=== PATIENT | male | born 1960 | race Caucasian/White ===

== ENCOUNTER 2023-05-24 17:39 | Inpatient (IN) ==
[2023-05-24] MEDS ORDERED: SODIUM CHLORIDE 0.9% 1000ML 1,000 ML IV ONE (17:53)
[2023-05-24] MEDS ORDERED: MoRPHine SULFATE 10 MG/ML CARP/VIAL IV STA (17:53)
--- NOTE | 2023-05-24 17:57 | Emergency Department Note ---
Impression & Plan Pancreatitis, Transaminitis, Alcohol abuse ED Provider Note NAME: ALLYSSA DONATO AGE: 63 SEX: M : 1960 ARRIVES VIA: Ambulance INFORMANT: Patient ED PROVIDER(S): Js Vasquez DO CHIEF COMPLAINT: abdominal pain HPI: Patient is a 63-year-old male who presents the ER for abdominal pain which started earlier today. He had this once about a month ago and it resolved shortly after. He denies any previous abdominal pains. It is associated with nausea and vomiting. Denies any headache or change in vision. It is an 8-9 out of 10. He notes his abdomen is distended and rigid. He did have a small bowel movement earlier today but nothing since. No dysuria, urgency or frequency. No other exacerbating or remitting factors. He does admit to drinking alcohol da corby between 6-8 beers. PAST MEDICAL HISTORY:See Below PAST SURGICAL HISTORY:See Below FAMILY HISTORY:See Below SOCIAL HISTORY:See Below HOME MEDICATIONS:See Below ALLERGIES:See Below VITALS:See Below PHYSICAL EXAMINATION: GENERAL: Sitting up in bed, alert, moderate distress holding his abdomen EYE EXAM: normal conjunctiva. OROPHARYNX: mucous membranes are moist LUNGS: Clear to auscultation. Normal chest wall mechanics HEART: no murmurs, S1 normal and S2 normal ABDOMEN: abdomen soft, diffusely tender to palpation, normo-active bowel sounds, no masses, no rebound or guarding. UPPER EXTREMITIES: upper extremities are grossly normal. LOWER EXTREMITIES: No pitting edema. NEURO EXAM: Normal sensorium, cranial nerves II-XII grossly intact, normal speech, no gross weakness of arms, no gross weakness of legs. MEDICAL DECISION MAKING: Patient is a 63-year-old male who presents ER for above-stated complaint. IV was established blood work was obtained. External records reviewed. Labs show no significant leukocytosis or anemia. BMP with mild hyponatremia 131. LFTs was remarkable for transaminitis in the low 100s. T. bili slightly up at 1.4. Mag low at 1.3. Lipase was elevated significantly at 3000. UA was clean. CT abdomen pelvis confirms pancreatitis. He was given IV fluids, morphine, folate and thiamine. He was updated bedside. Discussed with the hospitalist for furt her evaluation management treatment for pancreatitis. T. bili was up slightly and CBD was mildly dilated. Will defer to the hospitalist for additional work- up possible choledocholithiasis although favor unlikely. I did also cover him with IV antibiotics in combination with the fluids and IV morphine/Dilaudid. Triage Nursing notes reviewed. Limited review of prior medical records performed Vital Signs: reviewed and remarkable for no significant abnormalities Differential diagnosis: Differential diagnoses includes but is not limited to gastritis, peptic ulcer disease, GERD, gallbladder disease, pancreatitis, small bowel obstruction, appen dicitis, diverticulitis, hernia, urinary tract infection, torsion, perforation, trauma, infectious. ER treatment provided: See below Diagnostics interpreted by me include EKG and cardiac monitoring as listed below: -Cardiac Monitoring: An order was placed for continuous cardiac monitoring. The monitor shows a rate of 80 with sinus rhythm. -ECG: none -Laboratory studies:Interpreted by me as stated above in MDM and shown below. Imaging studies: Xrays: As interpreted by me:none CTs show: CT abdomen pelvis per my read showed fluid throughout the abdomen CT abdomen pelvis per radiology showed pancreatitis Consultation(s): As described in MDM Procedures:none Critical Care: None Past Med/Surg History Social History Smoking Status: Never smoker Feels Safe at Home: Yes Allergies Allergies Allergy/AdvReac Type Severity Reaction Status Date / Time Penicillins Allergy Mild Unknown Verified 05/24/23 21:25 Home Meds Home Medications Medication Instructions Recorded Confirmed omeprazole 20 mg capsule,delayed 20 mg PO QAM 05/24/23 05/24/23 release Results & Data (ED) Vital Signs Vital Signs - 24 hr 05/24/23 17:44 05/24/23 18:12 05/24/23 17:52 Temperature 36.8 C Temperature Source Oral Pulse Rate 83 83 Pulse Rate from SpO2 Sensor Pulse Rhythm Regular Pulse Strength Normal Respiratory Rate 19 Respiratory Effort / Characteristics Non-Labored Spontaneous Respiratory Depth Normal Respiratory Pattern Regular Blood Pressure 170/79 H Blood Pressure Mean 109 Blood Pressure Position Lying Pulse Oximetry 100 96 Oxygen Delivery Method Room Air Room Air Sepsis Recent Fever Within 48 Hours No Sepsis New/Unexplained Change in Mental Status N/A Sepsis Action Taken by Nursing No Action Required 05/24/23 17:48 05/24/23 18:00 05/24/23 18:48 Temperature Temperature Source Pulse Rate 81 80 Pulse Rate from SpO2 Sensor 82 81 106 H Pulse Rhythm Pulse Strength Respiratory Rate 20 18 Respiratory Effort / Characteristics Respiratory Depth Respiratory Pattern Blood Pressure 176/100 H 176/125 H Blood Pressure Mean 125 142 Blood Pressure Position Pulse Oximetry 100 99 100 Oxygen Delivery Method Sepsis Recent Fever Within 48 Hours Sepsis New/Unexplained Change in Mental Status Sepsis Action Taken by Nursing 05/24/23 19:00 05/24/23 21:47 Temperature Temperature Source Pulse Rate 102 H 88 Pulse Rate from SpO2 Sensor Pulse Rhythm Pulse Strength Respiratory Rate 26 H Respiratory Effort / Characteristics Respiratory Depth Respiratory Pattern Blood Pressure 176/105 H Blood Pressure Mean 128 Blood Pressure Position Pulse Oximetry Oxygen Delivery Method Sepsis Recent Fever Within 48 Hours Sepsis New/Unexplained Change in Mental Status Sepsis Action Taken by Nursing Laboratory Data 05/24/23 17:58 05/24/23 17:58 Lab Results 05/24/23 05/24/23 05/24/23 Range/Units 17:58 17:58 17:58 WBC 6.00 (4.8-10.8) K/ul RBC 4.06 L (4.70-6.10) M/uL Hgb 13.8 L (14.0-18.0) g/dl POC Hgb (14.0-18.0) g/dl Hct 38.1 L (42.0-52.0) % POC Hct (42-52) % MCV 93.8 (80.0-100.0) fL MCH 34.0 (25.0-34.0) pg MCHC 36.2 H (32.0-36.0) g/dL RDW Std Deviation 44.0 (36.4-46.3) fL RDW Coeff of [place] 12.7 (11.5-14.5) % Plt Count 135 (130-400) K/uL MPV 9.6 (9.4-12.4) fL Immature Gran % (Auto) 0.5 % Neut % (Auto) 86.0 % Lymph % (Auto) 5.2 % Harris % (Auto) 8.0 % Eos % (Auto) 0.0 % Baso % (Auto) 0.3 % Neut # (Auto) 5.16 (1.40-6.50) K/uL Lymph # (Auto) 0.31 L (1.2-3.4) K/uL Harris # (Auto) 0.48 (0.11-0.59) K/uL Eos # (Auto) 0.00 (0-0.50) K/uL Baso # (Auto) 0.02 (0-0.2) K/uL Immature Gran # (Auto) 0.03 (0.01-0.20) K/uL POC Sodium (135-144) mmol/L Sodium 131 L (136-145) mmol/L POC Potassium (3.3-5.0) mmol/L Potassium 4.4 (3.5-5.1) mmol/L POC Chloride (101-112) mmol/L Chloride 96 L (98-107) mmol/L Carbon Dioxide 25 (21-32) mmol/L POC Total CO2 (24-31) mmol/L Anion Gap 10 (3-11) POC Anion Gap (16-25) mmol/L POC BUN (7-18) mg/dl BUN 6 (6-23) mg/dl Creatinine 0.75 (0.6-1.4) mg/dl POC Creatinine (0.6-1.3) mg/dl Est Cr Clr Drug Dosing 79.2 ml/min Est GFR ( Amer) 111.6 ml/min Est GFR (Non-Af Amer) 96.3 ml/min BUN/Creatinine Ratio 8.0 L (10-20) Glucose 158 H (70-99(Fasting)) mg/dl POC Glucose (other) (70-99) mg/dl Calcium 9.5 (8.6-10.3) mg/dl POC Ioniz Calcium Blake (1.12-1.32) mmol/l Magnesium 1.3 L Cancelled (1.7-2.4) mg/dl Total Bilirubin 1.4 H (0.2-1.0) mg/dl AST 126 H (13-39) U/L ALT 55 H (7-52) U/L Alkaline Phosphatase 49 (34-104) U/L Total Protein 7.0 (6.0-8.3) gm/dl Albumin 4.1 (3.4-5.0) gm/dl Globulin 2.9 (2.5-4.0) gm/dl Albumin/Globulin Ratio 1.4 (0.9-2) Lipase 3355 H (11-82) U/L Urine Color Urine Appearance (Clear) Urine pH (4.5-7.5) Ur Specific [place] (1.000-1.030) Urine Protein (Negative) Urine Glucose (UA) (Negative) Urine Ketones (Negative) Urine Blood (Negative) Urine Nitrite (Negative) Urine Bilirubin (Negative) Urine Urobilinogen (Negative) Ur Leukocyte Esterase (Negative) Urine WBC (Auto) (0-5) /hpf Urine RBC (Auto) (0-4) /hpf U Hyaline Cast (Auto) (0-5) /lpf U Epithel Cells (Auto) (0-5) /lpf Urine Bacteria (Auto) (Negative) SARS-CoV-2, RNA, NAAT (NEGATIVE) 05/24/23 05/24/23 05/24/23 Range/Units 18:04 19:09 21:03 WBC (4.8-10.8) K/ul RBC (4.70-6.10) M/uL Hgb (14.0-18.0) g/dl POC Hgb 14.6 (14.0-18.0) g/dl Hct (42.0-52.0) % POC Hct 43 (42-52) % MCV (80.0-100.0) fL MCH (25.0-34.0) pg MCHC (32.0-36.0) g/dL RDW Std Deviation (36.4-46.3) fL RDW Coeff of [place] (11.5-14.5) % Plt Count (130-400) K/uL MPV (9.4-12.4) fL Immature Gran % (Auto) % Neut % (Auto) % Lymph % (Auto) % Harris % (Auto) % Eos % (Auto) % Baso % (Auto) % Neut # (Auto) (1.40-6.50) K/uL Lymph # (Auto) (1.2-3.4) K/uL Harris # (Auto) (0.11-0.59) K/uL Eos # (Auto) (0-0.50) K/uL Baso # (Auto) (0-0.2) K/uL Immature Gran # (Auto) (0.01-0.20) K/uL POC Sodium 130 L (135-144) mmol/L Sodium (136-145) mmol/L POC Potassium 4.4 (3.3-5.0) mmol/L Potassium (3.5-5.1) mmol/L POC Chloride 95 L (101-112) mmol/L Chloride (98-107) mmol/L Carbon Dioxide (21-32) mmol/L POC Total CO2 23 L (24-31) mmol/L Anion Gap (3-11) POC Anion Gap 18.0 (16-25) mmol/L POC BUN 5 L (7-18) mg/dl BUN (6-23) mg/dl Creatinine (0.6-1.4) mg/dl POC Creatinine 0.6 (0.6-1.3) mg/dl Est Cr Clr Drug Dosing ml/min Est GFR ( Amer) ml/min Est GFR (Non-Af Amer) ml/min BUN/Creatinine Ratio (10-20) Glucose (70-99(Fasting)) mg/dl POC Glucose (other) 157 H (70-99) mg/dl Calcium (8.6-10.3) mg/dl POC Ioniz Calcium Blake 1.17 (1.12-1.32) mmol/l Magnesium (1.7-2.4) mg/dl Total Bilirubin (0.2-1.0) mg/dl AST (13-39) U/L ALT (7-52) U/L Alkaline Phosphatase (34-104) U/L Total Protein (6.0-8.3) gm/dl Albumin (3.4-5.0) gm/dl Globulin (2.5-4.0) gm/dl Albumin/Globulin Ratio (0.9-2) Lipase (11-82) U/L Urine Color Yellow Urine Appearance Clear (Clear) Urine pH 5.5 (4.5-7.5) Ur Specific [place] 1.034 H (1.000-1.030) Urine Protein 1+ H (Negative) Urine Glucose (UA) Trace H (Negative) Urine Ketones 1+ H (Negative) Urine Blood 2+ H (Negative) Urine Nitrite Negative (Negative) Urine Bilirubin Negative (Negative) Urine Urobilinogen Negative (Negative) Ur Leukocyte Esterase Negative (Negative) Urine WBC (Auto) 1-5 (0-5) /hpf Urine RBC (Auto) 0-4 (0-4) /hpf U Hyaline Cast (Auto) 1-5 (0-5) /lpf U Epithel Cells (Auto) 5-10 H (0-5) /lpf Urine Bacteria (Auto) Negative (Negative) SARS-CoV-2, RNA, NAAT NEGATIVE (NEGATIVE) Administered Medications Discontinued Medications Hydromorphone HCl (Hydromorphone Inj 0.5 Mg/0.5 Ml Syr) 0.5 mg IV NOW STA Stop: 05/24/23 19:29 Last Admin: 05/24/23 19:34 Dose: 0.5 mg Documented By: ELLEN Sodium Chloride (Nss 1000ml) 1,000 mls @ 999 mls/hr IV .Q1H1M ONE Stop: 05/24/23 18:53 Last Infusion: 05/24/23 19:24 Dose: 0 mls/hr Documented By: Admin: 05/24/23 18:08 Dose: 999 mls/hr Documented By: CHAGO Thiamine HCl 100 mg/ Syringe 10 mls @ 2 mls/min IV NOW STA Stop: 05/24/23 19:34 Last Admin: 05/24/23 20:46 Dose: 2 mls/min Documented By: ANAID Folic Acid 1 mg/ Syringe 10 mls @ 5 mls/min IV NOW STA Stop: 05/24/23 19:31 Last Admin: 05/24/23 20:45 Dose: 5 mls/min Documented By: ANAID Metronidazole (Flagyl) 500 mg in 100 mls @ 100 mls/hr IV NOW STA; Protocol Stop: 05/24/23 21:12 Last Admin: 05/24/23 21:25 Dose: 100 mls/hr Documented By: ELLEN Ceftriaxone Sodium (Rocephin) 2,000 mg in 70 mls @ 140 mls/hr IV NOW STA Stop: 05/24/23 20:42 Last Infusion: 05/24/23 21:09 Dose: 0 mls/hr Documented By: Admin: 05/24/23 20:36 Dose: 140 mls/hr Documented By: ANAID Ioversol (Optiray 350 500ml) 90 ml IV ONCE ONE Stop: 05/24/23 18:43 Last Admin: 05/24/23 18:42 Dose: 90 ml Documented By: NAS Morphine Sulfate (Morphine Sulfate 10 Mg/Ml Carp/Vial) 6 mg IV NOW STA Stop: 05/24/23 17:54 Last Admin: 05/24/23 18:10 Dose: 6 mg Documented By: CHAGO Ondansetron HCl (Ondansetron Inj 2 Mg/Ml 2 Ml Vial) 4 mg IV NOW STA Stop: 05/24/23 21:39 Last Admin: 05/24/23 21:42 Dose: 4 mg Documented By: ELLEN Imaging Data Radiologist's Impression: Abdomen/Pelvis CT 05/24/23 17:53 Exam(s): CT ABDOMEN + PELVIS With Contrast IV Amt: 90ML OPTIRAY 350 EXAM: CT Abdomen and Pelvis With Intravenous Contrast CLINICAL HISTORY: Reason for exam: severe abd pain. TECHNIQUE: Axial computed tomography images of the abdomen and pelvis with intravenous contrast. CTDI is 12.08 mGy and DLP is 528.9 mGy-cm. Automated exposure control was utilized for the study. A dose lowering technique was utilized adhering to the principles of ALARA. CONTRAST: Patient received 90ML OPTIRAY 350 of IV contrast COMPARISON: None FINDINGS: Lung bases: Unremarkable. No mass. No consolidation. ABDOMEN: Liver: Hepatic steatosis. Gallbladder and bile ducts: Mild prominence of the common bile duct measuring 9 mm. Further evaluation could be performed with ERCP or MRCP if clinically indicated. No calcified stones. Pancreas: Inflamed pancreas with peripancreatic fluid, compatible with acute pancreatitis. Enlarged pancreatic duct. Spleen: Unremarkable. No splenomegaly. Adrenals: Unremarkable. No mass. Kidneys and ureters: Unremarkable. No hydronephrosis or obstructing stone. Stomach and bowel: Mild prominence of the dueñas of the colon may be secondary to underdistention. Colitis is not excluded. Diverticulosis without evidence of diverticulitis. No small bowel obstruction. PELVIS: Appendix: Normal appendix. Bladder: Mild prominence of the bladder wall is nonspecific. Please correlate with urinalysis if concerned for cystitis. Reproductive: Unremarkable as visualized. ABDOMEN and PELVIS: Intraperitoneal space: Unremarkable. No free air. No significant fluid collection. Retroperitoneal space: Fluid in the retroperitoneum and coursing down into the posterior pelvis. Bones/joints: Degenerative changes of the spine. No acute fracture. No dislocation. Soft tissues: Tiny fat-containing umbilical hernia. Vasculature: Unremarkable. No abdominal aortic aneurysm. Lymph nodes: Mildly prominent mesenteric lymph nodes are nonspecific but may be reactive. IMPRESSION: 1. Inflamed pancreas with peripancreatic fluid, compatible with acute pancreatitis. 2. Mild prominence of the udeñas of the colon may be secondary to underdistention. Colitis is not excluded. 3. Mild prominence of the bladder wall is nonspecific. Please correlate with urinalysis if concerned for cystitis. 4. Enlarged pancreatic duct. 5. Mild prominence of the common bile duct measuring 9 mm. Further evaluation could be performed with ERCP or MRCP if clinically indicated. Electronically signed by: Teodoro Zapata M.D. 05/24/23 19:57 PM Discharge Plan Visit Data Chief Complaint: Abdominal Pain ED Provider: Js Vasquez Discharge Problem: Pancreatitis, Transaminitis, Alcohol abuse Forms Stand Alone Forms: [facility] Prescriptions Prescriptions: No Action omeprazole 20 mg capsule,delayed release(DR/EC) 20 mg PO QAM Referrals Referrals: Jun Montanez MD [Primary Care Provider] -
[2023-05-24 18:17] LABS: iSTAT Creatinine 0.6 mg/dl (0.6-1.3); iSTAT Hemoglobin 14.6 g/dl (14.0-18.0); iSTAT Ionized Calcium 1.17 mmol/l (1.12-1.32); iSTAT Potassium 4.4 mmol/L (3.3-5.0)
[2023-05-24 18:25] LABS: Basophils # (auto) 0.02 K/uL (0-0.2); Basophils % (auto) 0.3 %; Hematocrit (blood only) 38.1 % (42.0-52.0); Hemoglobin 13.8 g/dl (14.0-18.0); Immature Granulocytes # (auto) 0.03 K/uL (0.01-0.20); Immature Granulocytes % (auto) 0.5 %; Lymphocytes # (auto) 0.31 K/uL (1.2-3.4); Lymphocytes % (auto) 5.2 %; Mean Corpuscular Hgb Conc 36.2 g/dL (32.0-36.0); Mean Corpuscular Volume 93.8 fL (80.0-100.0); Mean Platelet Volume 9.6 fL (9.4-12.4); Monocytes # (auto) 0.48 K/uL (0.11-0.59); Neutrophils # (auto) 5.16 K/uL (1.40-6.50); Platelet Count 135 K/uL (130-400); RDW Coefficient of Variation 12.7 % (11.5-14.5); Red Blood Count 4.06 M/uL (4.70-6.10)
[2023-05-24 18:37] LABS: Calcium 9.5 mg/dl (8.6-10.3); Creatinine Clr Calc Pharmacy 79.2 ml/min; Est GFR (African American) 111.6 ml/min; Est GFR (Non-African American) 96.3 ml/min; Potassium 4.4 mmol/L (3.5-5.1)
[2023-05-24] MEDS ORDERED: OPTIRAY 350 500ml IV ONE (18:42)
[2023-05-24 19:05] LABS: Albumin Globulin Ratio 1.4 (0.9-2); Albumin Level 4.1 gm/dl (3.4-5.0); Bilirubin,Total 1.4 mg/dl (0.2-1.0); Globulin 2.9 gm/dl (2.5-4.0)
[2023-05-24 19:25] LABS: Appearance Urine Clear (Clear); Bacteria Urine Automated Negative (Negative); Bilirubin Urine Negative (Negative); Blood Urine 2+ (Negative); Color Urine Yellow; Glucose Urine UA Trace (Negative); Ketones Urine 1+ (Negative); Leukocyte Esterase Urine Negative (Negative); Nitrite Urine Negative (Negative); Protein Urine 1+ (Negative); RBC Urine Automated 0-4 /hpf (0-4); Specific Gravity Urine 1.034 (1.000-1.030); Urobilinogen Urine Negative (Negative); pH Urine 5.5 (4.5-7.5)
[2023-05-24] MEDS ORDERED: HYDROmorphone INJ 0.5 MG/0.5 ML SYR IV STA (19:28)
[2023-05-24] MEDS ORDERED: FOLIC ACID 1 MG in SYRINGE 9.8 ML IV STA (19:30)
[2023-05-24] MEDS ORDERED: THIAMINE HCL 100 MG in SYRINGE 9 ML IV STA (19:30)
--- NOTE | 2023-05-24 19:58 | CT Scan Report ---
Exam(s): CT ABDOMEN + PELVIS With Contrast IV Amt: 90ML OPTIRAY 350 EXAM: CT Abdomen and Pelvis With Intravenous Contrast CLINICAL HISTORY: Reason for exam: severe abd pain. TECHNIQUE: Axial computed tomography images of the abdomen and pelvis with intravenous contrast. CTDI is 12.08 mGy and DLP is 528.9 mGy-cm. Automated exposure control was utilized for the study. A dose lowering technique was utilized adhering to the principles of ALARA. CONTRAST: Patient received 90ML OPTIRAY 350 of IV contrast COMPARISON: None FINDINGS: Lung bases: Unremarkable. No mass. No consolidation. ABDOMEN: Liver: Hepatic steatosis. Gallbladder and bile ducts: Mild prominence of the common bile duct measuring 9 mm. Further evaluation could be performed with ERCP or MRCP if clinically indicated. No calcified stones. Pancreas: Inflamed pancreas with peripancreatic fluid, compatible with acute pancreatitis. Enlarged pancreatic duct. Spleen: Unremarkable. No splenomegaly. Adrenals: Unremarkable. No mass. Kidneys and ureters: Unremarkable. No hydronephrosis or obstructing stone. Stomach and bowel: Mild prominence of the dueñas of the colon may be secondary to underdistention. Colitis is not excluded. Diverticulosis without evidence of diverticulitis. No small bowel obstruction. PELVIS: Appendix: Normal appendix. Bladder: Mild prominence of the bladder wall is nonspecific. Please correlate with urinalysis if concerned for cystitis. Reproductive: Unremarkable as visualized. ABDOMEN and PELVIS: Intraperitoneal space: Unremarkable. No free air. No significant fluid collection. Retroperitoneal space: Fluid in the retroperitoneum and coursing down into the posterior pelvis. Bones/joints: Degenerative changes of the spine. No acute fracture. No dislocation. Soft tissues: Tiny fat-containing umbilical hernia. Vasculature: Unremarkable. No abdominal aortic aneurysm. Lymph nodes: Mildly prominent mesenteric lymph nodes are nonspecific but may be reactive. IMPRESSION: 1. Inflamed pancreas with peripancreatic fluid, compatible with acute pancreatitis. 2. Mild prominence of the dueñas of the colon may be secondary to underdistention. Colitis is not excluded. 3. Mild prominence of the bladder wall is nonspecific. Please correlate with urinalysis if concerned for cystitis. 4. Enlarged pancreatic duct. 5. Mild prominence of the common bile duct measuring 9 mm. Further evaluation could be performed with ERCP or MRCP if clinically indicated. Electronically signed by: Teodoro Zapata M.D. 05/24/23 19:57 PM
[2023-05-24] MEDS ORDERED: cefTRIAXone SODIUM 2,000 MG/70 ML BAG IV STA (20:13)
[2023-05-24] MEDS ORDERED: metroNIDAZOLE 500 MG/100 ML BAG IV STA (20:13)
[2023-05-24] MEDS ORDERED: cloNIDine HCL 0.1 MG TAB PO ONE (21:23)
[2023-05-24] MEDS ORDERED: ONDANSETRON INJ 2 MG/ML 2 ML VIAL IV STA (21:38)
--- NOTE | 2023-05-24 21:40 | History & Physical Report ---
Date of Service May 24, 2023 Assessment & Plan (1) Pancreatitis: Plan: 63-year-old male with past medical significant for benign positional vertigo, hypertension situational, ongoing alcoholism, chews tobacco, presents with abdominal pain started today in the morning and vomited several times went to PCP and advised to come to the ER and found to have acute pancreatitis and elevated LFTs. Acute pancreatitis Mostly alcohol induced Rule out gallstones We will keep him n.p.o. IV Ringer's lactate 200 mm/h IV Dilaudid as needed and IV antiemetics as needed GI consult in a.m. Elevated LFTs CT scan showing dilated bile duct We will do MRCP to rule out choledocholithiasis Empiric antibiotic with cefepime and Flagyl Follow repeat labs Alcoholism Drinks 6-8 beers daily Banana bag IV thiamine and IV folic acid daily and multivitamin daily Alcohol withdrawal protocol with gabapentin and IV Ativan as needed Close monitor Needs counseling Hypertension situational as per records Elevated currently We will place on clonidine as needed and close monitor Chews tobacco Needs counseling DVT prophylaxis with Lovenox we will monitor the platelets Disposition med/telemetry Full code History of Present Illness Chief Complaint: Abdominal pain and nausea, vomiting Primary Care Provider: Jun Montanez MD 63-year-old male with past medical significant for benign positional vertigo, hypertension situational, ongoing alcoholism, chews tobacco, presents with abdominal pain started today in the morning. He thought it has heartburn and took glass of milk but he vomited it. Pain was severe in the epigastric and paramedical region and vomited several times bilious vomitus. Went to PCP and was come to the ER. Patient says he had similar pain about a month ago but at that time it subsided. No blood in the vomitus. No fevers. Normal bowel and bladder movements. No chest pain. No shortness of breath. No cough. No dysphagia. No headache. Sometimes he gets vertigo when he lays down and turns his head. Currently no dizziness. No blurred visions or earache or runny nose or sore throat. Somewhat tearful as his mother he could not attend tomorrow. Past medical history as mentioned above Past surgical history colonoscopy, EGD, Social history . Drinks 6-8 beers every day for long time. Chews 1 can of tobacco daily. Family history father had [place] at age 59 Allergies Allergy/AdvReac Type Severity Reaction Status Date / Time Penicillins Allergy Mild Unknown Verified 05/24/23 21:25 Home Medications Medication Instructions Recorded Confirmed Type omeprazole 20 mg capsule,delayed 20 mg PO QAM 05/24/23 05/24/23 History release Past Med/Surg History Social History Smoking Status: Never smoker Feels Safe at Home: Yes Review of Systems Review of Systems: All systems reviewed & are unremarkable except as noted in Subjective Physical Exam Physical Exam: General- Not in distress Head- atraumatic Eyes- PERRL. ENT- oropharynx clear Neck- supple, no JVD, Lungs- clear to auscultation and percussion no added sounds Heart- regular rate and rhythm; no murmur, no gallop. Abdomen- normal bowel sounds, soft, tenderness in epigastric and periumbilical region, no distension Extremities- no pretibial edema, no erythema Neuro- alert, oriented x 3; PERRL, no facial palsy; no dysarthria;obeys commands, moves extremities Skin- warm & dry Results & Data Results & Data Vital Signs (Past 12 Hours) Vital Signs Temp Pulse Resp BP Pulse Ox O2 Del Method 05/24/23 19:00 102 H 26 H 176/105 H 05/24/23 18:48 176/125 H 100 05/24/23 18:00 80 18 176/100 H 99 05/24/23 17:48 81 20 100 05/24/23 17:52 83 05/24/23 18:12 96 Room Air 05/24/23 17:44 36.8 C 83 19 170/79 H 100 Room Air Diagnostic Findings Laboratory Results WBC 6.00 K/ul (4.8-10.8) 05/24/23 17:58 RBC 4.06 M/uL (4.70-6.10) L 05/24/23 17:58 Hgb 13.8 g/dl (14.0-18.0) L 05/24/23 17:58 POC Hgb 14.6 g/dl (14.0-18.0) 05/24/23 18:04 Hct 38.1 % (42.0-52.0) L 05/24/23 17:58 POC Hct 43 % (42-52) 05/24/23 18:04 MCV 93.8 fL (80.0-100.0) 05/24/23 17:58 MCH 34.0 pg (25.0-34.0) 05/24/23 17:58 MCHC 36.2 g/dL (32.0-36.0) H 05/24/23 17:58 RDW Std Deviation 44.0 fL (36.4-46.3) 05/24/23 17:58 RDW Coeff of [place] 12.7 % (11.5-14.5) 05/24/23 17:58 Plt Count 135 K/uL (130-400) 05/24/23 17:58 MPV 9.6 fL (9.4-12.4) 05/24/23 17:58 Immature Gran % (Auto) 0.5 % 05/24/23 17:58 Neut % (Auto) 86.0 % 05/24/23 17:58 Lymph % (Auto) 5.2 % 05/24/23 17:58 [place] % (Auto) 8.0 % 05/24/23 17:58 Eos % (Auto) 0.0 % 05/24/23 17:58 Baso % (Auto) 0.3 % 05/24/23 17:58 Neut # (Auto) 5.16 K/uL (1.40-6.50) 05/24/23 17:58 Lymph # (Auto) 0.31 K/uL (1.2-3.4) L 05/24/23 17:58 [place] # (Auto) 0.48 K/uL (0.11-0.59) 05/24/23 17:58 Eos # (Auto) 0.00 K/uL (0-0.50) 05/24/23 17:58 Baso # (Auto) 0.02 K/uL (0-0.2) 05/24/23 17:58 Immature Gran # (Auto) 0.03 K/uL (0.01-0.20) 05/24/23 17:58 POC Sodium 130 mmol/L (135-144) L 05/24/23 18:04 Sodium 131 mmol/L (136-145) L 05/24/23 17:58 POC Potassium 4.4 mmol/L (3.3-5.0) 05/24/23 18:04 Potassium 4.4 mmol/L (3.5-5.1) 05/24/23 17:58 POC Chloride 95 mmol/L (101-112) L 05/24/23 18:04 Chloride 96 mmol/L (98-107) L 05/24/23 17:58 Carbon Dioxide 25 mmol/L (21-32) 05/24/23 17:58 POC Total CO2 23 mmol/L (24-31) L 05/24/23 18:04 Anion Gap 10 (3-11) 05/24/23 17:58 POC Anion Gap 18.0 mmol/L (16-25) 05/24/23 18:04 POC BUN 5 mg/dl (7-18) L 05/24/23 18:04 BUN 6 mg/dl (6-23) 05/24/23 17:58 Creatinine 0.75 mg/dl (0.6-1.4) 05/24/23 17:58 POC Creatinine 0.6 mg/dl (0.6-1.3) 05/24/23 18:04 Est Cr Clr Drug Dosing 79.2 ml/min 05/24/23 17:58 Est GFR ( Amer) 111.6 ml/min 05/24/23 17:58 Est GFR (Non-Af Amer) 96.3 ml/min 05/24/23 17:58 BUN/Creatinine Ratio 8.0 (10-20) L 05/24/23 17:58 Glucose 158 mg/dl (70-99(Fasting)) H 05/24/23 17:58 POC Glucose (other) 157 mg/dl (70-99) H 05/24/23 18:04 Calcium 9.5 mg/dl (8.6-10.3) 05/24/23 17:58 POC Ioniz Calcium Blake 1.17 mmol/l (1.12-1.32) 05/24/23 18:04 Magnesium Cancelled 05/24/23 17:58 Total Bilirubin 1.4 mg/dl (0.2-1.0) H 05/24/23 17:58 AST 126 U/L (13-39) H 05/24/23 17:58 ALT 55 U/L (7-52) H 05/24/23 17:58 Alkaline Phosphatase 49 U/L (34-104) 05/24/23 17:58 Total Protein 7.0 gm/dl (6.0-8.3) 05/24/23 17:58 Albumin 4.1 gm/dl (3.4-5.0) 05/24/23 17:58 Globulin 2.9 gm/dl (2.5-4.0) 05/24/23 17:58 Albumin/Globulin Ratio 1.4 (0.9-2) 05/24/23 17:58 Lipase 3355 U/L (11-82) H 05/24/23 17:58 Urine Color Yellow 05/24/23 19:09 Urine Appearance Clear (Clear) 05/24/23 19:09 Urine pH 5.5 (4.5-7.5) 05/24/23 19:09 Ur Specific [place] 1.034 (1.000-1.030) H 05/24/23 19:09 Urine Protein 1+ (Negative) H 05/24/23 19:09 Urine Glucose (UA) Trace (Negative) H 05/24/23 19:09 Urine Ketones 1+ (Negative) H 05/24/23 19:09 Urine Blood 2+ (Negative) H 05/24/23 19:09 Urine Nitrite Negative (Negative) 05/24/23 19:09 Urine Bilirubin Negative (Negative) 05/24/23 19:09 Urine Urobilinogen Negative (Negative) 05/24/23 19:09 Ur Leukocyte Esterase Negative (Negative) 05/24/23 19:09 Urine WBC (Auto) 1-5 /hpf (0-5) 05/24/23 19:09 Urine RBC (Auto) 0-4 /hpf (0-4) 05/24/23 19:09 U Hyaline Cast (Auto) 1-5 /lpf (0-5) 05/24/23 19:09 U Epithel Cells (Auto) 5-10 /lpf (0-5) H 05/24/23 19:09 Urine Bacteria (Auto) Negative (Negative) 05/24/23 19:09 Impressions Abdomen/Pelvis CT 05/24/23 17:53 Exam(s): CT ABDOMEN + PELVIS With Contrast IV Amt: 90ML OPTIRAY 350 EXAM: CT Abdomen and Pelvis With Intravenous Contrast CLINICAL HISTORY: Reason for exam: severe abd pain. TECHNIQUE: Axial computed tomography images of the abdomen and pelvis with intravenous contrast. CTDI is 12.08 mGy and DLP is 528.9 mGy-cm. Automated exposure control was utilized for the study. A dose lowering technique was utilized adhering to the principles of ALARA. CONTRAST: Patient received 90ML OPTIRAY 350 of IV contrast COMPARISON: None FINDINGS: Lung bases: Unremarkable. No mass. No consolidation. ABDOMEN: Liver: Hepatic steatosis. Gallbladder and bile ducts: Mild prominence of the common bile duct measuring 9 mm. Further evaluation could be performed with ERCP or MRCP if clinically indicated. No calcified stones. Pancreas: Inflamed pancreas with peripancreatic fluid, compatible with acute pancreatitis. Enlarged pancreatic duct. Spleen: Unremarkable. No splenomegaly. Adrenals: Unremarkable. No mass. Kidneys and ureters: Unremarkable. No hydronephrosis or obstructing stone. Stomach and bowel: Mild prominence of the dueñas of the colon may be secondary to underdistention. Colitis is not excluded. Diverticulosis without evidence of diverticulitis. No small bowel obstruction. PELVIS: Appendix: Normal appendix. Bladder: Mild prominence of the bladder wall is nonspecific. Please correlate with urinalysis if concerned for cystitis. Reproductive: Unremarkable as visualized. ABDOMEN and PELVIS: Intraperitoneal space: Unremarkable. No free air. No significant fluid collection. Retroperitoneal space: Fluid in the retroperitoneum and coursing down into the posterior pelvis. Bones/joints: Degenerative changes of the spine. No acute fracture. No dislocation. Soft tissues: Tiny fat-containing umbilical hernia. Vasculature: Unremarkable. No abdominal aortic aneurysm. Lymph nodes: Mildly prominent mesenteric lymph nodes are nonspecific but may be reactive. IMPRESSION: 1. Inflamed pancreas with peripancreatic fluid, compatible with acute pancreatitis. 2. Mild prominence of the dueñas of the colon may be secondary to underdistention. Colitis is not excluded. 3. Mild prominence of the bladder wall is nonspecific. Please correlate with urinalysis if concerned for cystitis. 4. Enlarged pancreatic duct. 5. Mild prominence of the common bile duct measuring 9 mm. Further evaluation could be performed with ERCP or MRCP if clinically indicated. Electronically signed by: Teodoro Zapata M.D. 05/24/23 19:57 PM Code Status & VTE Plan VTE Prophylaxis Plan VTE Prophylaxis will be ordered: Yes
[2023-05-24 21:47] LABS: Magnesium 1.3 mg/dl (1.7-2.4)
[2023-05-24] MEDS ORDERED: CEROVITE ADV FORMULA TAB PO STA (23:03)
[2023-05-24] MEDS ORDERED: Ativan IV Alcohol Withdrawal--Active Protocol IV PRN (23:03)
[2023-05-24] MEDS ORDERED: HYDROmorphone INJ 0.5 MG/0.5 ML SYR IV PRN (23:03)
[2023-05-24] MEDS ORDERED: ONDANSETRON INJ 2 MG/ML 2 ML VIAL IV PRN (23:03)
[2023-05-24] MEDS ORDERED: LORazepam 2 MG/1 ML VIAL IV PRN ×3 (23:03)
[2023-05-24] MEDS ORDERED: NITROGLYCERIN SL 0.4 MG/TAB TAB SL PRN (23:03)
[2023-05-24] MEDS ORDERED: GABAPENTIN 1200MG ALCOHOL WITHDRAWAL LOAD PO STA (23:03)
[2023-05-24] MEDS ORDERED: GABAPENTIN 600 MG TAB PO ONE (23:03)
[2023-05-24] MEDS ORDERED: THIAMINE HCL 100 MG, FOLIC ACID 1 MG in SODIUM CHLORIDE 0.9% 1000ML 1,000 ML IV SCH (23:03)
[2023-05-24] MEDS ORDERED: cloNIDine HCL 0.1 MG TAB PO PRN (23:03)
[2023-05-25] MEDS: ENOXAPARIN INJ 40 MG/0.4 ML SYR SQ SCH ×2 (00:09→21:44)
[2023-05-25] MEDS: LACTATED RINGER'S 1,000 ML IV SCH ×5 (01:56→22:25)
[2023-05-25] MEDS: GABAPENTIN 600 MG TAB PO SCH ×3 (05:26→21:44)
[2023-05-25] MEDS ORDERED: metroNIDAZOLE 500 MG/100 ML BAG IV SCH (06:00)
[2023-05-25 06:36] LABS: Basophils # (auto) 0.02 K/uL (0-0.2); Basophils % (auto) 0.4 %; Eosinophils # (auto) 0.04 K/uL (0-0.50); Eosinophils % (auto) 0.7 %; Hematocrit (blood only) 32.4 % (42.0-52.0); Hemoglobin 11.6 g/dl (14.0-18.0); Immature Granulocytes # (auto) 0.02 K/uL (0.01-0.20); Immature Granulocytes % (auto) 0.4 %; Lymphocytes # (auto) 0.82 K/uL (1.2-3.4); Lymphocytes % (auto) 15.2 %; Mean Corpuscular Hemoglobin 33.5 pg (25.0-34.0); Mean Corpuscular Hgb Conc 35.8 g/dL (32.0-36.0); Mean Corpuscular Volume 93.6 fL (80.0-100.0); Mean Platelet Volume 9.7 fL (9.4-12.4); Monocytes % (auto) 11.1 %; Neutrophils # (auto) 3.91 K/uL (1.40-6.50); Neutrophils % (auto) 72.2 %; Platelet Count 116 K/uL (130-400); RDW Coefficient of Variation 12.8 % (11.5-14.5); RDW Standard Deviation 43.8 fL (36.4-46.3); Red Blood Count 3.46 M/uL (4.70-6.10); White Blood Count 5.41 K/ul (4.8-10.8)
[2023-05-25 06:47] LABS: Albumin Level 3.2 gm/dl (3.4-5.0); Bilirubin Direct 0.3 mg/dl (0-0.2); Bilirubin,Total 0.9 mg/dl (0.2-1.0); Calcium 8.2 mg/dl (8.6-10.3); Magnesium 1.2 mg/dl (1.7-2.4); Potassium 3.4 mmol/L (3.5-5.1)
[2023-05-25 06:53] LABS: BUN Creatinine Ratio 5.3 (10-20); Creatinine Clr Calc Pharmacy 75.8 ml/min; Est GFR (Non-African American) 95.7 ml/min
--- NOTE | 2023-05-25 07:10 | Magnetic Resonance Report ---
Exam(s): MRI MRCP EXAM: MR Abdomen Without Intravenous Contrast, MRCP Protocol CLINICAL HISTORY: Reason for exam: abdominal pain, elevated lft. pancreatitis.. TECHNIQUE: Multiplanar magnetic resonance images of the abdomen without intravenous contrast using MRCP protocol. COMPARISON: No relevant prior studies available. FINDINGS: Bile ducts: CBD caliber measures 9 mm in diameter. No ductal dilation. No evidence of choledocholithiasis. Gallbladder: Unremarkable. No stones. Liver: Unremarkable. Pancreas: Main pancreatic duct is mildly dilated measuring up to 5 mm in diameter. There is mild peripancreatic inflammation. Spleen: Unremarkable. No splenomegaly. Adrenals: Unremarkable. No mass. Kidneys and ureters: Unremarkable. No hydronephrosis. Stomach and bowel: Unremarkable. No obstruction. Intraperitoneal space: Small ascites. IMPRESSION: 1. Acute pancreatitis 2. Small ascites 3. Pancreatic and biliary ductal dilatation without evidence of choledocholithiasis Electronically signed by: Thanh Tillman MD 05/25/23 07:09 AM
[2023-05-25 07:37] LABS: Total Protein 5.5 gm/dl (6.0-8.3)
[2023-05-25 08:07] LABS: Folate (Folic Acid),Ser orPlas > 22.30 ng/ml (>5.38)
[2023-05-25 08:08] LABS: Vitamin B12 385 pg/ml (180-914)
[2023-05-25] MEDS: FOLIC ACID 1 MG in SYRINGE 9.8 ML IV SCH (08:08)
[2023-05-25] MEDS: THIAMINE HCL 100 MG in SYRINGE 9 ML IV SCH (08:08)
[2023-05-25] MEDS: FAMOTIDINE 20 MG in SYRINGE 3 ML IV SCH ×2 (08:08→21:44)
[2023-05-25] MEDS ORDERED: POTASSIUM CHLORIDE CRTAB 20 MEQ TABCR PO STA (08:20)
[2023-05-25] MEDS: MAGNESIUM SULFATE / D5W 1 GM/100 ML BAG IV SCH ×3 (08:56→12:29)
--- NOTE | 2023-05-25 09:18 | Gastrointestinal Consultation ---
Date of Consultation May 25, 2023 Assessment & Plan (1) Transaminitis: 63 year old male ETOH abuse, tobacco abuse admitted with abd pain, nausea/vomiting imaging concerning for acute pancreatitis CBD dilation at 9mm and PD dilation at 5mm Treat the pancreatitis IV LR 150 mL/hr Antiemetics PRN Analgesia PRN NPO for bowel rest but may have liquids for lunch if continues to feel well then advance to low fat diet as tolerated Will need OP EUS within 1 month given double duct sign on imaging Recall as needed. (2) Pancreatitis: Supervising Physician Co-Signing Physician Notes Attending attestation I have seen, examined this patient, and agree with the findings and above by our mid-level provider CATARINA Kitchen, with the following additions: Clinically improved Continue supportive care Outpt EUS Strict Etoh Cessation Monitor for withdrawl History of Present Illness Reason for Consultation: pancreatitis, elevated LFTs Requesting Physician: [place]os Attending Physician: Onofre Balderrama MD History of Present Illness 63 year old male with history of benign positional vertigo, hypertension, alcohol abuse, chewing tobacco admitted through the ED with abd pain, na usea/vomiting x 1 day. Notes he had similar episode about 1 month ago but symptoms resolved quickly. Notes this time pain was more severe and persistent. He notes he had severe nausea and vomiting about 20+ episodes. No black or bloody emesis. no black or bloody stools. No fever, chills, CP, SOB. + tobacco + ETOH 6-8 beers daily MRI ABD 2022: Acute pancreatitis Small ascites Pancreatic and biliary ductal dilatation without evidence of choledocholithiasis CTAP 2022: Inflamed pancreas with peripancreatic fluid, compatible with acute pancreatitis.Mild prominence of the dueñas of the colon may be secondary to underdistention. Colitis is not excluded. Mild prominence of the bladder wall is nonspecific. Please correlate with urinalysis if concerned for cystitis. Enlarged pancreatic duct.Mild prominence of the common bile duct measuring 9 mm. Furtherevaluation could be performed with ERCP or MRCP if clinically indicated Allergies Allergy/AdvReac Type Severity Reaction Status Date / Time Penicillins Allergy Mild Unknown Verified 05/24/23 21:25 Home Medications Medication Instructions Recorded Confirmed Type omeprazole 20 mg capsule,delayed 20 mg PO QAM 05/24/23 05/24/23 History release Patient History Social History Smoking Status: Former smoker Hx Alcohol Use: Yes Alcohol type: beer Hx Substance Use: No Preferred Language: [place] Communication Ability: Effective [facility] Manager Required: No Beliefs That Will Affect Care: None Current Living Situation: Family Feels Safe at Home: Yes Assistive Devices: None Review of Systems Review of Systems: All systems reviewed & are unremarkable except as noted in HPI & below Physical Exam Constitutional: WD/WN, vitals as above Respiratory: normal respiratory effort, lungs clear to auscultation Cardiovascular: Rate/Rhythm: regular rate and regular rhythm Gastrointestinal (Abdomen): normal bowel sounds, soft, nontender, no hepatosplenomegaly Skin: no rashes, warm and dry Results & Data Vital Signs (Past 12 Hours) Vital Signs Temp Pulse Pulse Resp BP BP BP 05/25/23 07:00 82 05/25/23 07:18 37.1 C 93 H 18 159/93 H 05/25/23 04:04 37.0 C 95 H 20 165/91 H 05/25/23 01:29 87 05/24/23 23:05 36.9 C 89 18 155/93 H 05/24/23 22:30 104 H 20 05/24/23 22:30 178/115 H 05/24/23 22:00 87 21 05/24/23 22:00 174/105 H 05/24/23 21:30 87 22 05/24/23 21:30 177/106 H 05/24/23 21:47 88 Pulse Ox O2 Del Method 05/25/23 07:00 05/25/23 07:18 97 Room Air 05/25/23 04:04 98 Room Air 05/25/23 01:29 05/24/23 23:05 100 Room Air 05/24/23 22:30 98 05/24/23 22:30 05/24/23 22:00 98 05/24/23 22:00 05/24/23 21:30 96 05/24/23 21:30 05/24/23 21:47 Laboratory Results 05/25/23 05/25/23 05/25/23 Range/Units 05:42 05:42 05:42 WBC 5.41 (4.8-10.8) K/ul RBC 3.46 L (4.70-6.10) M/uL Hgb 11.6 L (14.0-18.0) g/dl POC Hgb (14.0-18.0) g/dl Hct 32.4 L (42.0-52.0) % POC Hct (42-52) % MCV 93.6 (80.0-100.0) fL MCH 33.5 (25.0-34.0) pg MCHC 35.8 (32.0-36.0) g/dL RDW Std Deviation 43.8 (36.4-46.3) fL RDW Coeff of [place] 12.8 (11.5-14.5) % Plt Count 116 L (130-400) K/uL MPV 9.7 (9.4-12.4) fL Immature Gran % (Auto) 0.4 % Neut % (Auto) 72.2 % Lymph % (Auto) 15.2 % [place] % (Auto) 11.1 % Eos % (Auto) 0.7 % Baso % (Auto) 0.4 % Neut # (Auto) 3.91 (1.40-6.50) K/uL Lymph # (Auto) 0.82 L (1.2-3.4) K/uL [place] # (Auto) 0.60 H (0.11-0.59) K/uL Eos # (Auto) 0.04 (0-0.50) K/uL Baso # (Auto) 0.02 (0-0.2) K/uL Immature Gran # (Auto) 0.02 (0.01-0.20) K/uL POC Sodium (135-144) mmol/L Sodium 135 L (136-145) mmol/L POC Potassium (3.3-5.0) mmol/L Potassium 3.4 L D (3.5-5.1) mmol/L POC Chloride (101-112) mmol/L Chloride 101 (98-107) mmol/L Carbon Dioxide 26 (21-32) mmol/L POC Total CO2 (24-31) mmol/L Anion Gap 8 (3-11) POC Anion Gap (16-25) mmol/L POC BUN (7-18) mg/dl BUN 4 L (6-23) mg/dl Creatinine 0.76 (0.6-1.4) mg/dl POC Creatinine (0.6-1.3) mg/dl Est Cr Clr Drug Dosing 75.8 ml/min Est GFR ( Amer) 111.0 ml/min Est GFR (Non-Af Amer) 95.7 ml/min BUN/Creatinine Ratio 5.3 L (10-20) Glucose 101 H (70-99(Fasting)) mg/dl POC Glucose (other) (70-99) mg/dl Calcium 8.2 L (8.6-10.3) mg/dl POC Ioniz Calcium [place] (1.12-1.32) mmol/l Magnesium 1.2 L (1.7-2.4) mg/dl Total Bilirubin 0.9 D (0.2-1.0) mg/dl Direct Bilirubin 0.3 H (0-0.2) mg/dl AST 71 H (13-39) U/L ALT 37 (7-52) U/L Alkaline Phosphatase 38 (34-104) U/L Total Protein 5.5 L D (6.0-8.3) gm/dl Albumin 3.2 L (3.4-5.0) gm/dl Globulin (2.5-4.0) gm/dl Albumin/Globulin Ratio (0.9-2) Lipase 2137 H (11-82) U/L Vitamin B12 385 (180-914) pg/ml Folate > 22.30 (>5.38) ng/ml Urine Color Urine Appearance (Clear) Urine pH (4.5-7.5) Ur Specific [place] (1.000-1.030) Urine Protein (Negative) Urine Glucose (UA) (Negative) Urine Ketones (Negative) Urine Blood (Negative) Urine Nitrite (Negative) Urine Bilirubin (Negative) Urine Urobilinogen (Negative) Ur Leukocyte Esterase (Negative) Urine WBC (Auto) (0-5) /hpf Urine RBC (Auto) (0-4) /hpf U Hyaline Cast (Auto) (0-5) /lpf U Epithel Cells (Auto) (0-5) /lpf Urine Bacteria (Auto) (Negative) SARS-CoV-2, RNA, NAAT (NEGATIVE) 05/24/23 05/24/23 05/24/23 Range/Units 21:03 19:09 18:04 WBC (4.8-10.8) K/ul RBC (4.70-6.10) M/uL Hgb (14.0-18.0) g/dl POC Hgb 14.6 (14.0-18.0) g/dl Hct (42.0-52.0) % POC Hct 43 (42-52) % MCV (80.0-100.0) fL MCH (25.0-34.0) pg MCHC (32.0-36.0) g/dL RDW Std Deviation (36.4-46.3) fL RDW Coeff of [place] (11.5-14.5) % Plt Count (130-400) K/uL MPV (9.4-12.4) fL Immature Gran % (Auto) % Neut % (Auto) % Lymph % (Auto) % [place] % (Auto) % Eos % (Auto) % Baso % (Auto) % Neut # (Auto) (1.40-6.50) K/uL Lymph # (Auto) (1.2-3.4) K/uL [place] # (Auto) (0.11-0.59) K/uL Eos # (Auto) (0-0.50) K/uL Baso # (Auto) (0-0.2) K/uL Immature Gran # (Auto) (0.01-0.20) K/uL POC Sodium 130 L (135-144) mmol/L Sodium (136-145) mmol/L POC Potassium 4.4 (3.3-5.0) mmol/L Potassium (3.5-5.1) mmol/L POC Chloride 95 L (101-112) mmol/L Chloride (98-107) mmol/L Carbon Dioxide (21-32) mmol/L POC Total CO2 23 L (24-31) mmol/L Anion Gap (3-11) POC Anion Gap 18.0 (16-25) mmol/L POC BUN 5 L (7-18) mg/dl BUN (6-23) mg/dl Creatinine (0.6-1.4) mg/dl POC Creatinine 0.6 (0.6-1.3) mg/dl Est Cr Clr Drug Dosing ml/min Est GFR ( Amer) ml/min Est GFR (Non-Af Amer) ml/min BUN/Creatinine Ratio (10-20) Glucose (70-99(Fasting)) mg/dl POC Glucose (other) 157 H (70-99) mg/dl Calcium (8.6-10.3) mg/dl POC Ioniz Calcium [place] 1.17 (1.12-1.32) mmol/l Magnesium (1.7-2.4) mg/dl Total Bilirubin (0.2-1.0) mg/dl Direct Bilirubin (0-0.2) mg/dl AST (13-39) U/L ALT (7-52) U/L Alkaline Phosphatase (34-104) U/L Total Protein (6.0-8.3) gm/dl Albumin (3.4-5.0) gm/dl Globulin (2.5-4.0) gm/dl Albumin/Globulin Ratio (0.9-2) Lipase (11-82) U/L Vitamin B12 (180-914) pg/ml Folate (>5.38) ng/ml Urine Color Yellow Urine Appearance Clear (Clear) Urine pH 5.5 (4.5-7.5) Ur Specific [place] 1.034 H (1.000-1.030) Urine Protein 1+ H (Negative) Urine Glucose (UA) Trace H (Negative) Urine Ketones 1+ H (Negative) Urine Blood 2+ H (Negative) Urine Nitrite Negative (Negative) Urine Bilirubin Negative (Negative) Urine Urobilinogen Negative (Negative) Ur Leukocyte Esterase Negative (Negative) Urine WBC (Auto) 1-5 (0-5) /hpf Urine RBC (Auto) 0-4 (0-4) /hpf U Hyaline Cast (Auto) 1-5 (0-5) /lpf U Epithel Cells (Auto) 5-10 H (0-5) /lpf Urine Bacteria (Auto) Negative (Negative) SARS-CoV-2, RNA, NAAT NEGATIVE (NEGATIVE) 05/24/23 05/24/23 05/24/23 Range/Units 17:58 17:58 17:58 WBC 6.00 (4.8-10.8) K/ul RBC 4.06 L (4.70-6.10) M/uL Hgb 13.8 L (14.0-18.0) g/dl POC Hgb (14.0-18.0) g/dl Hct 38.1 L (42.0-52.0) % POC Hct (42-52) % MCV 93.8 (80.0-100.0) fL MCH 34.0 (25.0-34.0) pg MCHC 36.2 H (32.0-36.0) g/dL RDW Std Deviation 44.0 (36.4-46.3) fL RDW Coeff of [place] 12.7 (11.5-14.5) % Plt Count 135 (130-400) K/uL MPV 9.6 (9.4-12.4) fL Immature Gran % (Auto) 0.5 % Neut % (Auto) 86.0 % Lymph % (Auto) 5.2 % [place] % (Auto) 8.0 % Eos % (Auto) 0.0 % Baso % (Auto) 0.3 % Neut # (Auto) 5.16 (1.40-6.50) K/uL Lymph # (Auto) 0.31 L (1.2-3.4) K/uL [place] # (Auto) 0.48 (0.11-0.59) K/uL Eos # (Auto) 0.00 (0-0.50) K/uL Baso # (Auto) 0.02 (0-0.2) K/uL Immature Gran # (Auto) 0.03 (0.01-0.20) K/uL POC Sodium (135-144) mmol/L Sodium 131 L (136-145) mmol/L POC Potassium (3.3-5.0) mmol/L Potassium 4.4 (3.5-5.1) mmol/L POC Chloride (101-112) mmol/L Chloride 96 L (98-107) mmol/L Carbon Dioxide 25 (21-32) mmol/L POC Total CO2 (24-31) mmol/L Anion Gap 10 (3-11) POC Anion Gap (16-25) mmol/L POC BUN (7-18) mg/dl BUN 6 (6-23) mg/dl Creatinine 0.75 (0.6-1.4) mg/dl POC Creatinine (0.6-1.3) mg/dl Est Cr Clr Drug Dosing 79.2 ml/min Est GFR ( Amer) 111.6 ml/min Est GFR (Non-Af Amer) 96.3 ml/min BUN/Creatinine Ratio 8.0 L (10-20) Glucose 158 H (70-99(Fasting)) mg/dl POC Glucose (other) (70-99) mg/dl Calcium 9.5 (8.6-10.3) mg/dl POC Ioniz Calcium [place] (1.12-1.32) mmol/l Magnesium Cancelled 1.3 L (1.7-2.4) mg/dl Total Bilirubin 1.4 H (0.2-1.0) mg/dl Direct Bilirubin (0-0.2) mg/dl AST 126 H (13-39) U/L ALT 55 H (7-52) U/L Alkaline Phosphatase 49 (34-104) U/L Total Protein 7.0 (6.0-8.3) gm/dl Albumin 4.1 (3.4-5.0) gm/dl Globulin 2.9 (2.5-4.0) gm/dl Albumin/Globulin Ratio 1.4 (0.9-2) Lipase 3355 H (11-82) U/L Vitamin B12 (180-914) pg/ml Folate (>5.38) ng/ml Urine Color Urine Appearance (Clear) Urine pH (4.5-7.5) Ur Specific [place] (1.000-1.030) Urine Protein (Negative) Urine Glucose (UA) (Negative) Urine Ketones (Negative) Urine Blood (Negative) Urine Nitrite (Negative) Urine Bilirubin (Negative) Urine Urobilinogen (Negative) Ur Leukocyte Esterase (Negative) Urine WBC (Auto) (0-5) /hpf Urine RBC (Auto) (0-4) /hpf U Hyaline Cast (Auto) (0-5) /lpf U Epithel Cells (Auto) (0-5) /lpf Urine Bacteria (Auto) (Negative) SARS-CoV-2, RNA, NAAT (NEGATIVE)
[2023-05-25] MEDS: CYANOCOBALAMIN (B-12) 100 MCG TABLET PO SCH (09:52)
[2023-05-25] MEDS: MAGNESIUM OXIDE 400 MG TAB PO SCH ×2 (09:52→21:45)
--- NOTE | 2023-05-25 16:01 | Hospitalist Progress Note ---
Date of Service May 25, 2023 Assessment & Plan (1) Pancreatitis: Plan: 63-year-old male with past medical significant for benign positional vertigo, hypertension situational, ongoing alcoholism, chews tobacco, presents with abdominal pain started in the AM of the arrival day a/w vomiting and found to have acute pancreatitis and elevated LFTs. He is being managed for the following: Likely alcohol induced Acute pancreatitis US abdomen and MRCP reviewed. Pancreatic and biliary ductal dilatation without evidence of choledocholithiasis. GI evaluated, patient started on clear liquids. Continue with IV fluid. Will need outpatient EUS in 1 month. As needed pain medications and antiemetics. Abdominal pain improving, lipase downtrending. Electrolyte abnormalities [magnesium/potassium/sodium]: Secondary to vomiting prior to arrival. Monitor and replete as appropriate. Transaminitis: Likely secondary to chronic alcohol use and pancreatitis. LFT trending down. GI evaluated. Appreciate recommendation. Alcoholism: Drinks 6-8 beers daily. Continue thiamine/folic acid/cyanocobalamin. Monitor over telemetry. Patient counseled, would like to quit drinking. CM to help w/ resources. GENNY S protocol on board. Hypertension situational as per records: Elevated currently. C/W clonidine as needed and close monitor Chews tobacco: counselled. DVT prophylaxis with Lovenox Disposition: med/telemetry Full code Admission and Anticipated Discharge Date Admission Date: May 24, 2023 Subjective Patient seen and examined at bedside as a follow-up of pancreatitis, alcohol abuse, transaminitis. Patient was lying in bed, NAD, on room air, reports improvement in his belly pain significantly, he was started on clear liquid diet/advance as tolerated, denies any fever or chills, reports drinking 6 beers daily. Physical Exam Physical Exam: GENERAL: Alert and oriented x3. NAD, on RA. HEENT: No pallor, no icterus. Pupils equal, round and reactive to light. Oral mucosa moist. NECK: No JVD, no neck masses. HEART: S1 and S2 heard. Regular rate and rhythm. No murmur, no gallop. RESPIRATORY SYSTEM: Normal AP diameter. No accessory muscle use. No wheezing, no crackles. ABDOMEN: Soft, bowel sounds present, nontender, no distention. CENTRAL NERVOUS SYSTEM: No facial droop. Speech is clear. Obeys simple commands. Moves extremities. EXTREMITIES: No edema, no erythema seen. Results & Data Results & Data Vital Signs (Past 12 Hours) Vital Signs Temp Pulse Pulse Resp BP Pulse Ox O2 Del Method 05/25/23 15:22 37.3 C 87 18 172/88 H 97 Room Air 05/25/23 11:18 36.9 C 85 18 159/88 H 97 Room Air 05/25/23 08:00 Room Air 05/25/23 07:00 82 05/25/23 07:18 37.1 C 93 H 18 159/93 H 97 Room Air 05/25/23 04:04 37.0 C 95 H 20 165/91 H 98 Room Air
[2023-05-25] MEDS ORDERED: CEFEPIME 2,000 MG in SYRINGE 0 ML IV SCH (18:00)
[2023-05-26] MEDS: LACTATED RINGER'S 1,000 ML IV SCH ×2 (03:47→09:52)
[2023-05-26] MEDS: GABAPENTIN 600 MG TAB PO SCH ×2 (03:48→11:36)
[2023-05-26 08:18] LABS: Hematocrit (blood only) 33.1 % (42.0-52.0); Hemoglobin 11.6 g/dl (14.0-18.0); Mean Platelet Volume 9.9 fL (9.4-12.4); Platelet Count 105 K/uL (130-400); RDW Coefficient of Variation 12.8 % (11.5-14.5); RDW Standard Deviation 43.9 fL (36.4-46.3); Red Blood Count 3.52 M/uL (4.70-6.10); White Blood Count 5.57 K/ul (4.8-10.8)
[2023-05-26 08:32] LABS: BUN Creatinine Ratio 3.1 (10-20); Bilirubin Direct 0.3 mg/dl (0-0.2); Bilirubin,Total 1.1 mg/dl (0.2-1.0); Calcium 8.6 mg/dl (8.6-10.3); Creatinine Clr Calc Pharmacy 97.3 ml/min; Est GFR (African American) 118.3 ml/min; Est GFR (Non-African American) 102.1 ml/min; Magnesium 1.7 mg/dl (1.7-2.4); Potassium 3.4 mmol/L (3.5-5.1); Total Protein 5.3 gm/dl (6.0-8.3)
[2023-05-26] MEDS: THIAMINE HCL 100 MG in SYRINGE 9 ML IV SCH (08:37)
[2023-05-26] MEDS: FOLIC ACID 1 MG in SYRINGE 9.8 ML IV SCH (08:37)
[2023-05-26] MEDS: CYANOCOBALAMIN (B-12) 100 MCG TABLET PO SCH (08:37)
[2023-05-26] MEDS: MAGNESIUM OXIDE 400 MG TAB PO SCH (08:37)
[2023-05-26] MEDS: FAMOTIDINE 20 MG in SYRINGE 3 ML IV SCH (08:41)
[2023-05-26] MEDS ORDERED: POTASSIUM CHLORIDE CRTAB 20 MEQ TABCR PO STA (09:59)
--- NOTE | 2023-05-26 14:32 | Discharge Summary ---
Date of Service May 26, 2023 Admission HPI Per Admitting Provider 63-year-old male with past medical significant for benign positional vertigo, hypertension situational, ongoing alcoholism, chews tobacco, presents with abdominal pain started today in the morning. He thought it has heartburn and took glass of milk but he vomited it. Pain was severe in the epigastric and paramedical region and vomited several times bilious vomitus. Went to PCP and was come to the ER. Patient says he had similar pain about a month ago but at that time it subsided. No blood in the vomitus. No fevers. Normal bowel and bladder movements. No chest pain. No shortness of breath. No cough. No dysphagia. No headache. Sometimes he gets vertigo when he lays down and turns his head. Currently no dizziness. No blurred visions or earache or runny nose or sore throat. Somewhat tearful as his mother he could not attend tomorrow. Past medical history as mentioned above Past surgical history colonoscopy, EGD, Social history . Drinks 6-8 beers every day for long time. Chews 1 can of tobacco daily. Family history father had CT at age 59 Admission Exam Per Admitting Provider General- Not in distress Head- atraumatic Eyes- PERRL. ENT- oropharynx clear Neck- supple, no JVD, Lungs- clear to auscultation and percussion no added sounds Heart- regular rate and rhythm; no murmur, no gallop. Abdomen- normal bowel sounds, soft, tenderness in epigastric and periumbilical region, no distension Extremities- no pretibial edema, no erythema Neuro- alert, oriented x 3; PERRL, no facial palsy; no dysarthria;obeys commands, moves extremities Skin- warm & dry Principal Diagnosis alcohol induced pancreatitis Alcohol abuse Discharge Exam GENERAL: Alert and oriented x3. NAD, on RA. HEENT: No pallor, no icterus. Pupils equal, round and reactive to light. Oral mucosa moist. NECK: No JVD, no neck masses. HEART: S1 and S2 heard. Regular rate and rhythm. No murmur, no gallop. RESPIRATORY SYSTEM: Normal AP diameter. No accessory muscle use. No wheezing, no crackles. ABDOMEN: Soft, bowel sounds present, nontender, no distention. CENTRAL NERVOUS SYSTEM: No facial droop. Speech is clear. Obeys simple commands. Moves extremities. EXTREMITIES: No edema, no erythema seen. Discharge Data Allergies Allergy/AdvReac Type Severity Reaction Status Date / Time Penicillins Allergy Mild Unknown Verified 05/24/23 21:25 Consultations 05/24/23 20:05 ED Decision to Admit Stat 05/25/23 08:00 Consult Gastroenterology Routine Ordered Studies 05/24/23 17:53 CT Abd and Pelvis [CT abd pelvis IV con only] Stat 05/25/23 01:20 MR MRCP Urgent Hospital Course (1) Pancreatitis: 63-year-old male with past medical significant for benign positional vertigo, hypertension situational, ongoing alcoholism, chews tobacco, presents with abdominal pain started in the AM of the arrival day a/w vomiting and found to have acute pancreatitis and elevated LFTs. He was managed for the following: Likely alcohol induced Acute pancreatitis US abdomen and MRCP reviewed. Pancreatic and biliary ductal dilatation without evidence of choledocholithiasis. GI evaluated, Will need outpatient EUS in 1 month. Patient is aware. Pain under control, patient tolerating soft diet very well. Patient advised to continue low-fat/soft diet for a week before getting back to his regular consistency diet. Patient recommended to stop alcohol consumption, verbalizes understanding. Electrolyte abnormalities [magnesium/potassium/sodium]: Secondary to vomiting prior to arrival. Monitor and replete as appropriate. Getting better with improving appetite. Transaminitis: Likely secondary to chronic alcohol use and pancreatitis. LFT trending down. GI evaluated. Appreciate recommendation. Will get repeat lab as an outpatient, patient will be following with GI upon discharge. Alcoholism: Drinks 6-8 beers daily. Continue thiamine/folic acid/cyanocobalamin. Patient counseled, would like to quit drinking. Patient would like to go home, last drink was 2 to 3 days ago, high risks of withdrawal. Patient is aware and still would like to go home. Patient made aware to reach out to emergency immediately if he has worsening withdrawal or seizures. Gabapentin taper and Librium taper will be ordered upon discharge. Hypertension situational as per records: Elevated currently. Will need outpatient evaluation by PCP after he is out of alcohol withdrawal window. Chews tobacco: counselled. DVT prophylaxis with Lovenox Disposition: med/telemetry Full code Patient being discharged home with following instruction at the point of discharge: Follow-up with your primary care physician within a week time and likely you will need labs CBC/CMP/magnesium/phosphorus. Follow-up with GI doctor in 1 month time for possible outpatient EUS study. Recommend complete cessation of alcohol products consumption. You are being discharged on gabapentin taper, complete as prescribed. Also you are being discharged on Librium taper. If you have worsening withdrawal or seizures, contact emergency immediately. Take your medications as prescribed. Please make sure that you are able to get your medications today by calling your pharmacy before you leave the hospital so that your treatment continuity is not broken. Home Health Attestation I certify that this patient is under my care and that I, or a physicians library media assistant working with me, had a face to-face encounter that meets the home health [id number] encounter requirements with this patient. The encounter with the patient was in whole, or in part, for the following medical condition, which is the primary reason for home health care (list medical condition): I certify that, based on my findings, the following services are medically necessary home health services: My clinical findings support the need for the above services because: Further, I certify that my clinical findings support that this patient is homebound (i.e. absences from home require considerable and taxing effort and are for medical reasons or synagogue services or infrequently or of short duration when for other reasons) because: Certification for Home Health Services: Based on the above findings, I certify that this patient is confined to the home and needs intermittent mcc care, physical therapy and/or speech therapy or continues to need occupational therapy. The patient is under my care, and I have initiated the establishment of the plan of care. This patient will be followed by a physician who will periodically review the plan of care. Total Time Total Time Spent Total Time Spent (In Minutes): 45 Discharge Plan Discharge Items Patient Disposition: Home - Self-Care Reason For Visit: PANCREATITIS, ALOCHOLISM Discharge Diagnosis: alcohol induced pancreatitis Alcohol abuse Activity: Resume your previous activity Non-emergency contact: Primary Care Provider Call non-emergency contact if: you have any medication questions, your symptoms worsen and your temperature is above 101 Follow-up/Referrals: Jun Montanez MD [Primary Care Provider] - (Date & Time 05/30/2023 8:20 AM Provider Jun Montanez MD [facility] ) Diet: Low Fat Diet Texture: Dental soft (bite-sized) Addtl Attending Provider Instructions: Follow-up with your primary care physician within a week time and likely you will need labs CBC/CMP/magnesium/phosphorus. Follow-up with GI doctor in 1 month time for possible outpatient EUS study. Recommend complete cessation of alcohol products consumption. You are being discharged on gabapentin taper, complete as prescribed. Also you are being discharged on Librium taper. If you have worsening withdrawal or seizures, contact emergency immediately. Take your medications as prescribed. Please make sure that you are able to get your medications today by calling your pharmacy before you leave the hospital so that your treatment continuity is not broken. Pending Studies at Discharge: No Stand-Alone Forms: [facility], Smoking Cessation Medications and DC Order Prescriptions: New gabapentin 600 mg Tablet 600 mg PO Q12H 2 Days Qty: 3 0RF magnesium oxide 400 mg (241.3 mg magnesium) Tablet 400 mg PO BID 7 Days Qty: 14 0RF cyanocobalamin (vitamin B-12) [Vitamin B-12] 100 mcg Tablet 100 mcg PO QAM Qty: 30 0RF folic acid 1 mg tablet 1,000 mcg PO DAILY Qty: 30 0RF thiamine HCl (vitamin B1) 100 mg tablet 100 mg PO DAILY Qty: 30 0RF chlordiazepoxide HCl 25 mg capsule 25 mg PO UD Qty: 6 0RF Rx Instructions: every 8 hours x 1 day, then every 12 hours x 1 day, then final dose on 3rd day. Continued omeprazole 20 mg capsule,delayed release(DR/EC) 20 mg PO QAM Discharge Orders: Discharge Order (Routine); Ordered 05/26/23 Ordered By: Onofre Boyce/Other Patient Handouts: Understanding Pancreatitis, Understanding Alcoholism Admission Data Admit Date/Time: 05/24/23 21:22 Attending Provider: Onofre Balderrama Admit Provider: Miko Cartwright Primary Care Provider: Jun Montanez Other Providers: Miko Cartwright ; Arun Loo ; Mayito Villegas ; Altagracia Doran ; Ivette Houser ; Blanquita Alfaro ; May Velasquez ; Daniel Thomas ; Jeff Bacon ; Say Espinoza ; Alejandro Joe ; Elias Tse ; Laquita Medina ; Cintia Lopez ; Tg Reyes ; Kathia Rai ; Shira Washington ; Denny Albarran ; Louie Isbell ; Susi Moss ; Jill Velasquez Jr Other Interventions: Discharge Summary Assessment (RN) Last Done: 05/26/23 11:24
[2023-05-27] MEDS ORDERED: GABAPENTIN 600 MG TAB PO SCH
[2023-05-28] MEDS ORDERED: GABAPENTIN 600 MG TAB PO SCH (12:00)
== END 2023-05-26 13:24 | disposition home or self-care (01) | DRG 439 ==
LOC: ED 17:39 → 2N 21:22 → SUATTDRO 21:22 → 2N 22:43